=== PATIENT | female | born 1965 | race Two or more races ===

== ENCOUNTER 2024-07-27 14:07 | Outpatient (CLI) | payer OTHER | END 2024-07-27 14:13 | disposition home or self-care (01) | LOC: RAD 14:07 | PROVIDERS: ATTEND Orthopaedic Surgery | DX: M25.561 Pain in right knee (principal); T84.092D Other mechanical complication of internal right knee prosthesis, subsequent encounter; E66.09 Other obesity due to excess calories ==

== ENCOUNTER → 2025-01-08 10:18 | Outpatient (CLI) | payer OTHER | END | disposition home or self-care (01) | LOC: LAB 10:18 | PROVIDERS: ATTEND Orthopaedic Surgery | DX: E55.9 Vitamin D deficiency, unspecified (principal); M85.9 Disorder of bone density and structure, unspecified; E56.1 Deficiency of vitamin K ==

== ENCOUNTER 2025-01-08 11:59 | Outpatient (CLI) | payer OTHER | END 2025-01-08 12:02 | disposition home or self-care (01) | LOC: RAD 11:59 | PROVIDERS: ATTEND Orthopaedic Surgery | DX: M54.50 Low back pain, unspecified (principal); M25.551 Pain in right hip ==